=== PATIENT | female | born 1930 | race Hispanic/Latino ===

== ENCOUNTER 2019-05-26 18:21 | Inpatient (IN) | payer MEDICARE ==
--- NOTE | 2019-05-26 18:29 | Emergency Department Report ---
Blank Doc - Documentation Documentation: 89-year-old female that presents with SOB and bilateral leg swellings. This initial assessment/diagnostic orders/clinical plan/treatment(s) is/are subject to change based on patient's health status, clinical progression and re- assessment by fellow clinical providers in the ED. Further treatment and workup at subsequent clinical providers discretion. Patient/guardians urged not to elope from the ED as their condition may be serious if not clinically assessed and managed. Initial orders include: 1- Patient sent to MAIN for further evaluation and treatment 2- labs 3- EKG 4- CXR
[2019-05-26 19:28] LABS: Hematocrit 41.6 % (30.3-42.9); Hemoglobin 13.5 gm/dl (10.1-14.3); Mean Corpuscular HGB Conc 33 % (30-34); Mean Corpuscular Volume 98 fl (79-97); Mean Platelet Volume 7.7 fl (6-12); Platelet Count 314 K/mm3 (140-440); Red Blood Count 4.23 M/mm3 (3.65-5.03); Red Cell Distribution Width 15.9 % (13.2-15.2)
[2019-05-26 19:29] LABS: Basophils # (Auto) 0.1 K/mm3 (0.0-0.1); Basophils % (Auto) 0.7 % (0.0-1.8); Eosinophils # (Auto) 0.1 K/mm3 (0.0-0.4); Eosinophils % (Auto) 0.5 % (0.0-4.3); Lymphocytes % (Auto) 7.3 % (13.4-35.0); Monocytes # (Auto) 1.3 K/mm3 (0.0-0.8)
--- NOTE | 2019-05-26 19:33 | XRay Report ---
CHEST PA AND LATERAL VIEWS INDICATION: Chest Pain. COMPARISON: None FINDINGS: Support devices: None Heart: Upper limits of normal Lungs/Pleura: Diffuse interstitial lung disease with no significant pleural fluid. IMPRESSION: 1. Interstitial lung disease. At least some is thought to be chronic. Suggest follow-up to assess int erstitial edema versus chronic fibrosis. Signer Name: Cain Valentin MD Signed: 05/26/2019 7:29 PM Workstation Name: [id number]
[2019-05-26 19:45] LABS: INR 0.98 (0.87-1.13); Partial Thromboplastin Time 41.1 Sec. (24.2-36.6)
[2019-05-26 20:48] LABS: Alanine Aminotransferase 16 units/L (7-56); Albumin 3.9 g/dL (3.9-5); BUN/Creatinine Ratio 41; Blood Urea Nitrogen 29 mg/dL (7-17); Calcium 9.5 mg/dL (8.4-10.2); Hemolysis Index 23
--- NOTE | 2019-05-27 02:00 | Cat Scan Report ---
CTA CHEST WITH IV CONTRAST INDICATION: sob and hypoxemia CONTRAST: 100 cc Omnipaque 350 IV COMPARISON: Chest x-ray tonight Three-plane MIP reconstructions were produced. All CT scans at this location are performed using CT d ose reduction for ALARA by means of automated exposure control. NOTE: Resolution is decreased and artifact is introduced by the patient's size. FINDINGS: No significant axillary or chest wall lesions are seen. Visualized portions of the upper ab domen show small probable renal cysts. Nodularity is seen in both adrenal glands. Largest nodule is i n the right adrenal gland measuring 2 cm with internal density of 10 Hounsfield units. Smaller probab le nodules are seen in the left adrenal gland. Gallstones are seen without gallbladder wall thickenin g. Moderate adenopathy is seen in the mediastinum. A right paratracheal node has a short axis diamete r of 2.3 cm. There may be mild right hilar adenopathy. Small pericardial effusion is seen. Coronary a rtery calcifications are noted. Heart appears mildly enlarged. The isthmus of the thyroid shows a nod ule measuring 13 mm. Small right and minimal left pleural effusions are seen. Diffuse increased inter stitial markings are seen in the lung emerson which could be chronic but I suspect at least part of th is finding represents pulmonary edema. Mild atelectatic changes are seen in the lower lobes. I cannot exclude pneumonitis, particularly in the right lower lobe. No discrete nodules or masses are identif ied. No pneumothorax or pneumomediastinum are seen. Aorta shows moderate atherosclerotic changes in the thorax I do not see true aneurysmal dilatation th ough the descending thoracic aorta is ectatic and is lower most portion particularly where this measu res 3.3 cm in diameter. No evidence of dissection is seen. 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 Atherosclerotic changes are prominent in the abdominal aorta. Major branches show atheros clerotic changes at their origins of the celiac axis and superior mesenteric artery are not clearly s ignificantly narrowed. However, both renal arteries show atherosclerotic changes at their origins and appear to show significant stenosis with up to 75% on the right and at least 60% on the left. Flow i s seen distally. Good opacification of the pulmonary arterial system was achieved. I do not see evidence of pulmonary thromboembolism. IMPRESSION: 1. No evidence of pulmonary thromboembolism 2. Probable diffuse interstitial pulmonary edema 3. Bibasilar atelectatic changes with possibility of pneumonitis in the right lower lobe. Small right and minimal left pleural effusions are seen. 4. Small lesion in the isthmus of the thyroid. See below. 5. 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 No acute changes are seen however. Bilateral probably significant renal artery proximal steno sis is noted. 6. Cholelithiasis without acute change seen 7. Bilateral adrenal nodularity. Recommend follow-up. Signer Name: Bill Mercer MD Signed: 05/27/2019 1:56 AM Workstation Name: [id number]
--- NOTE | 2019-05-27 02:05 | Emergency Department Report ---
ED Shortness of Breath HPI - General Chief Complaint: Dyspnea/Respdistress Stated Complaint: SOB Time Seen by Provider: 05/26/19 18:28 Source: patient Mode of arrival: Wheelchair Limitations: No Limitations - History of Present Illness Initial Comments: 89-year-old female past medical history of hypertension and tobacco abuse for the last 50 years but one pack per day presents emergency Department with her daughter reports having some greenish the worsening shortness of breath over the last 1 week and extremely more noticeable today while at the pain clinic for routine evaluation. She reports some swelling to her lower extremity as well denies any fever, chills, sweats, hemoptysis, hematemesis, hematochezia, foreign travel. Reports no nausea or vomiting. MD Complaint: shortness of breath Severity: mild Quality: dull Consistency: constant Improves With: nothing Worsens With: nothing Associated Symptoms: denies other symptoms Treatments Prior to Arrival: none - Related Data Home Oxygen Therapy: No Allergies Allergy/AdvReac Type Severity Reaction Status Date / Time No Known Allergies Allergy Verified 05/27/19 02:35 ED Review of Systems ROS: Stated complaint: SOB Other details as noted in HPI ED Past Medical Hx - Past Medical History Hx Hypertension: Yes Hx Arthritis: Yes Additional medical history: high cholesterol - Surgical History Past Surgical History?: Yes Additional Surgical History: rt elbow surgery - Social History Smoking Status: Current Every Day Smoker Substance Use Type: None ED Physical Exam - General Limitations: No Limitations ED Course Vital Signs 05/26/19 05/26/19 05/26/19 19:04 21:54 22:22 Temperature 97.8 F Pulse Rate 92 H 95 H Respiratory 20 20 Rate Blood Pressure 132/58 Blood Pressure 124/60 [Left] O2 Sat by Pulse 92 90 94 Oximetry ED Medical Decision Making - Lab Data Result diagrams: 05/26/19 18:54 05/26/19 18:54 - EKG Data EKG shows normal: sinus rhythm Rate: normal - EKG Data Interpretation: other (low-voltage EKG no ST segment changes or J-point elevation) - Radiology Data Radiology results: report reviewed [facility] [address] [place] [address] Cat Scan Report Signed Patient: IVETTE LAI MR#: [id number] 1 : 1930 Acct:[id number] Age/Sex: 89 / F ADM Date: 05/26/19 Loc: ED Attending Dr: Ordering Physician: GUY BREWER Date of Service: 05/26/19 Procedure(s): CT angio chest Accession Number(s): [id number] cc: GUY BREWER CTA CHEST WITH IV CONTRAST INDICATION: sob and hypoxemia CONTRAST: 100 cc Omnipaque 350 IV COMPARISON: Chest x-ray tonight Three-plane MIP reconstructions were produced. All CT scans at this location are performed using CT dose reduction for ALARA by means of automated exposure control. NOTE: Resolution is decreased and artifact is introduced by the patient's size. FINDINGS: No significant axillary or chest wall lesions are seen. Visualized portions of the upper abdomen show small probable renal cysts. Nodularity is seen in both adrenal glands. Largest nodule is in the right adrenal gland measuring 2 cm with internal density of 10 Hounsfield units. Smaller probable nodules are seen in the left adrenal gland. Gallstones are seen without gallbladder wall thickening. Moderate adenopathy is seen in the mediastinum. A right paratracheal node has a short axis diameter of 2.3 cm. There may be mild right hilar adenopathy. Small pericardial effusion is seen. Coronary artery calcifications are noted. Heart appears mildly enlarged. The isthmus of the thyroid shows a nodule measuring 13 mm. Small right and minimal left pleural effusions are seen. Diffuse increased interstitial markings are seen in the lung emerson which could be chronic but I suspect at least part of this finding represents pulmonary edema. Mild atelectatic changes are seen in the lower lobes. I cannot exclude pneumonitis, particularly in the right lower lobe. No discrete nodules or masses are identified. No pneumothorax or pneumomediastinum are seen. Aorta shows moderate atherosclerotic changes in the thorax I do not see true aneurysmal dilatation though the descending thoracic aorta is ectatic and is lower most portion particularly where this measures 3.3 cm in diameter. No evidence of dissection is seen. 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 Atherosclerotic changes are prominent in the abdominal aorta. Major branches show atherosclerotic changes at their origins of the celiac axis and superior mesenteric artery are not clearly significantly narrowed. However, both renal arteries show atherosclerotic changes at their origins and appear to show significant stenosis with up to 75% on the right and at least 60% on the left. Flow is seen distally. Good opacification of the pulmonary arterial system was achieved. I do not see evidence of pulmonary thromboembolism. IMPRESSION: 1. No evidence of pulmonary thromboembolism 2. Probable diffuse interstitial pulmonary edema 3. Bibasilar atelectatic changes with possibility of pneumonitis in the right lower lobe. Small right and minimal left pleural effusions are seen. 4. Small lesion in the isthmus of the thyroid. See below. 5. 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 No acute changes are seen however. 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 6. Cholelithiasis without acute change seen 7. Bilateral adrenal nodularity. Recommend follow-up. Signer Name: Bill Mercer MD Signed: 05/27/2019 1:56 AM Workstation Name: [id number] Transcribed By: ASHLEY Dictated By: Bill Mercer MD Electronically Authenticated By: Bill Mercer MD Signed Date/Time: 05/27/19 0156 DD/ 0144 TD/TT: - Medical Decision Making 89-year-old female presents emergency department for progressively worsening dyspnea and chest pain with history of severe to tobacco abuse. Episode at shows a white count CT scan shows a small right lower lobe pneumonia. She is satting and on room air and with the utilization of oxygen at 4 L nasal cannula since saturations up to 94%. Plan is to admit her for further evaluation and treatment Critical care attestation.: If time is entered above; I have spent that time in minutes in the direct care of this critically ill patient, excluding procedure time. ED Disposition Clinical Impression: Hypoxemia, SOB (shortness of breath), Right lower lobe pneumonia Disposition: OP ADMIT IP TO THIS HOSP Is pt being admited?: No Does the pt Need Aspirin: No Condition: Stable Instructions: Bacterial Pneumonia (ED) Referrals: PRIMARY CARE, [Primary Care Provider] - 3-5 Days
[2019-05-27] MEDS ORDERED: AZITHROMYCIN 500 MG in SODIUM CHLORIDE 0.9% 250ML 250 ML IV ONE (02:30)
[2019-05-27] MEDS ORDERED: predniSONE 50 MG TAB PO STA (02:59)
[2019-05-27] MEDS ORDERED: ALBUTEROL 2.5 MG/3 ML NEBU IH STA (02:59)
[2019-05-27] MEDS ORDERED: ACETAMINOPHEN 325 MG TAB PO PRN (03:17)
[2019-05-27] MEDS ORDERED: FUROSEMIDE 40 MG/4 ML INJ IV ONE (03:17)
[2019-05-27] MEDS ORDERED: ONDANSETRON 4 MG/2 ML INJ IV PRN (03:18)
[2019-05-27] MEDS ORDERED: MORPHINE 2 MG/1 ML INJ IV ONE (04:06)
[2019-05-27] MEDS: HEPARIN 5,000 UNIT/1 ML VIAL SUB-Q SCH ×3 (04:13→21:53)
[2019-05-27] MEDS: methylPREDNISolone Sod Succinate 125 MG/2 ML INJ IV SCH ×3 (05:48→21:53)
[2019-05-27 06:24] LABS: Creatine Kinase MB 3.4 ng/mL (0.0-4.0)
[2019-05-27] MEDS ORDERED: IPRATROPIUM/ALBUTEROL SULFATE 3 ML AMPUL.NEB IH SCH (08:00)
--- NOTE | 2019-05-27 08:06 | History and Physical Report ---
CHIEF COMPLAINT: Shortness of breath. HISTORY OF PRESENT ILLNESS: The patient is an 89-year-old female who has been having difficulty in breathing, going on for about 1 week and the symptoms became noticeably worse within the last 24 hours. There was no history of chest pain, no history of fever or chills; however, the patient has history of cough productive of green sputum. The patient denied history of nausea and vomiting and was evaluated in the Emergency Room and noted to be hypoxic. PAST MEDICAL HISTORY: Pertinent for hypertension, arthritis, hypercholesterolemia. PAST SURGICAL HISTORY: Pertinent for right elbow surgery. FAMILY HISTORY: Noncontributory. SOCIAL HISTORY: The patient is every day smoker. Does not drink alcohol and does not use illicit drugs. MEDICATIONS: The patient's home medications are not known at this time. ALLERGIES: There are no known drug allergies. REVIEW OF SYSTEMS: CONSTITUTIONAL: There is no fever, no chills, no diaphoresis. HEENT: There is no headache or sore throat. CARDIOVASCULAR SYSTEM: There is no chest pain or orthopnea. RESPIRATORY SYSTEM: Shortness of breath is present. Cough is present. GASTROINTESTINAL SYSTEM: There is no nausea, no vomiting, no abdominal pain, diarrhea or constipation. NEUROLOGICAL SYSTEM: There is no numbness, no dizziness, no altered mental status. MUSCULOSKELETAL SYSTEM: Chronic back pain noted. No joint swelling. DERMATOLOGICAL SYSTEM: There is no skin rash or itching. GENITOURINARY SYSTEM: There is no dysuria, hematuria, or flank pain. Rest of system review is normal. PHYSICAL EXAMINATION: GENERAL: At the time of exam, the patient was found to be alert, oriented x 3 and in mild distress due to shortness of breath. VITAL SIGNS: At the initial time of presentation showed temperature of 97.8 degrees Fahrenheit, pulse of 92, respirations 20, blood pressure 124/60, O2 sat of 92% on room air. HEENT: Showed pupils to be equal, round, reactive to light and accommodating. Extraocular muscles are intact. NECK: Supple with no JVD or carotid bruit. CARDIOVASCULAR SYSTEM: Showed normal first and second heart sounds with no gallops or murmurs. RESPIRATORY SYSTEM: Showed reduced air entry on both sides of the lungs with respiratory wheezing. GASTROINTESTINAL SYSTEM: Show abdomen to be full, soft, nontender with no organomegaly or rigidity. NEUROLOGIC: Shows no focal deficit. MUSCULOSKELETAL SYSTEM: Show no joint swelling or tenderness. DERMATOLOGICAL SKIN: Showed no skin rash. GENITOURINARY SYSTEM: Showing no costovertebral angle tenderness. PERTINENT LABORATORY AND IMAGING STUDIES: 1. The patient had CT angiogram of the chest done that shows no evidence of pulmonary embolism and the radiologist said there is probably diffuse interstitial pulmonary edema as well as bibasilar atelectatic changes with possibility of pneumonitis in the right lower lobe. There is finding of small right and minimal left pleural effusion and small lesion in the isthmus of the thyroid was seen. Also, the radiologist reported prominent atherosclerotic changes in the abdominal aorta with aneurysmal dilatation of the lower portion. 2. The CT angiogram of the chest also shows cholelithiasis without any acute change and there is finding of bilateral adrenal nodularity. The patient also had chest x-ray done and chest x-ray was read as showing interstitial lung disease, thought to be chronic and the radiologist said to do a followup x-ray to assess interstitial edema versus chronic fibrosis. LAB RESULTS: The patient has CBC done with elevated white count of 14,000, normal hemoglobin and normal hematocrit with CBC differential showing high monocyte count of 9% and high segmented neutrophil count of 82.5%. The patient coagulation studies show slightly elevated PTT of 41.1 with normal INR and normal PT. The patient's arterial blood gas shows a high pH of 7.45 with normal pCO2 and low O2 sat of 85% on room air. The patient's chemistry was unremarkable. Cardiac enzymes came back normal. Brain natriuretic peptide level was normal and rest of the patient's chemistry came back normal. DIAGNOSES: 1. Dyspnea. 2. Hypoxia. 3. Pneumonitis. PLAN OF CARE: 1. The patient will be placed on observation in the medical surgical [facility] on remote telemetry. 2. The patient will have 2D echo done this morning to evaluate the left ventricular function. 3. The patient will have serial cardiac enzymes involving troponin, total CK, and CK-MB checked every 6 hours x 2 more levels. 4. The patient will be on IV ceftriaxone 2 g daily and IV Zithromax 500 mg daily. 5. The patient will be on p.r.n. medications like Tylenol 650 mg by mouth every 4 hours for fever and headache and IV Zofran 4 mg every 8 hours for nausea and vomiting. 6. The patient will be on Duo nebulizer q.i.d. 7. The patient will be on IV Solu-Medrol 60 mg every 8 hours. 8. The patient will be on oxygen by nasal cannula, which will be titrated to keep O2 sat above 94%. 9. The patient's diet will be low sodium diet. 10. The patient's home medications will be started as shown in the medication reconciliation section. JOB# [id number] OCN/NTS
[2019-05-27] MEDS ORDERED: cefTRIAXone/NS 2 GM/100 ML 2 GM/100 ML BAG IV SCH (10:00)
[2019-05-27 13:49] LABS: Creatine Kinase MB 3.9 ng/mL (0.0-4.0)
[2019-05-27] MEDS: IPRATROPIUM/ALBUTEROL SULFATE 3 ML AMPUL.NEB IH SCH ×2 (14:22→21:40)
--- NOTE | 2019-05-27 15:03 | Event Note ---
Date: 05/27/19 Patient seen and examined admitted with acute hypoxic respiration failure, SIRS with possible CAP, b/l pulmonary edema and possible CHF pending Cx, pending echo cont current mx as dictated in the H and P
[2019-05-27] MEDS: FUROSEMIDE 40 MG/4 ML INJ IV SCH (18:13)
[2019-05-27] MEDS: oxyCODONE /ACETAMINOPHEN 5-325MG TAB PO PRN (18:17)
[2019-05-28] MEDS: AZITHROMYCIN 500 MG in SODIUM CHLORIDE 0.9% 250ML 250 ML IV SCH (02:26)
[2019-05-28] MEDS: cefTRIAXone/NS 2 GM/100 ML 2 GM/100 ML BAG IV SCH (02:27)
[2019-05-28] MEDS: oxyCODONE /ACETAMINOPHEN 5-325MG TAB PO PRN ×3 (02:44→20:00)
[2019-05-28 05:02] LABS: Hemoglobin 11.2 gm/dl (10.1-14.3); Mean Corpuscular HGB Conc 33 % (30-34); Mean Corpuscular Volume 97 fl (79-97); Platelet Count 277 K/mm3 (140-440); Red Cell Distribution Width 15.3 % (13.2-15.2)
[2019-05-28 05:21] LABS: BUN/Creatinine Ratio 57; Blood Urea Nitrogen 34 mg/dL (7-17); Calcium 8.4 mg/dL (8.4-10.2); Hemolysis Index 4
[2019-05-28] MEDS: FUROSEMIDE 40 MG/4 ML INJ IV SCH (06:31)
[2019-05-28 06:40] LABS: Eosinophils % (Manual) 0 % (0.0-4.3); Macrocytosis Few; Total Cells Counted 100
[2019-05-28 06:41] LABS: Ovalocytes Few; Platelet Estimate Consistent w Auto
[2019-05-28] MEDS: IPRATROPIUM/ALBUTEROL SULFATE 3 ML AMPUL.NEB IH SCH ×3 (09:31→19:32)
[2019-05-28] MEDS ORDERED: BENAZEPRIL 20 MG PO SCH (10:00)
[2019-05-28] MEDS ORDERED: NON-FORMULARY EACH (Amlodipine 10 MG) PO SCH (10:00)
[2019-05-28] MEDS ORDERED: NON-FORMULARY EACH (Atorvastatin 20 MG) PO SCH (10:00)
[2019-05-28] MEDS: amLODIPine 10 MG TAB PO SCH (10:17)
[2019-05-28] MEDS: LISINOPRIL 20 MG TAB PO SCH (10:25)
[2019-05-28] MEDS: methylPREDNISolone Sod Succinate 125 MG/2 ML INJ IV SCH ×2 (10:42→22:25)
[2019-05-28] MEDS: HEPARIN 5,000 UNIT/1 ML VIAL SUB-Q SCH ×2 (10:44→22:26)
--- NOTE | 2019-05-28 12:13 | Consultation ---
History of Present Illness Consult date: 05/28/19 Requesting physician: DARREN RENAE Reason for consult: other (Respiratory distress, AE-COPD) History of present illness: 89-year-old female past medical history of hypertension and tobacco abuse for the last 50 years but one pack per day presents emergency Department with her daughter reports having some greenish the worsening shortness of breath over the last 1 week and extremely more noticeable today while at the pain clinic for routine evaluation. She reports some swelling to her lower extremity as well denies any fever, chills, sweats, hemoptysis, hematemesis, hematochezia, foreign travel. Reports no nausea or vomiting. She is a current every day 1PPD smoker, and has been smoking for over 50 years. Patient was seen and examined. Vitals, labs, medications, chart and imaging reviewed. She is sitting up in bed, on supplemental oxygen at 3L/min. Medications and Allergies Allergies Allergy/AdvReac Type Severity Reaction Status Date / Time No Known Allergies Allergy Verified 05/27/19 02:35 Home Medications Medication Instructions Recorded Confirmed Last Taken Type Atorvastatin 20 mg PO DAILY 05/27/19 05/27/19 Unknown History Benazepril (Nf) 20 mg PO DAILY 05/27/19 05/27/19 Unknown History HYDROcodone/APAP 10-325 10 - 325 mg PO TID PRN 05/27/19 05/27/19 Unknown History amLODIPine 10 mg PO DAILY 05/27/19 05/27/19 Unknown History Active Meds: Active Medications Acetaminophen (Tylenol) 650 mg PO Q4H PRN PRN Reason: Fever >101 Albuterol/Ipratropium (Duoneb *Not For Prn Use*) 1 ampul IH TIDRT [facility] Last Admin: 05/28/19 09:31 Dose: 1 ampul Documented by: Amlodipine Besylate (Amlodipine) 10 mg PO DAILY [facility] Last Admin: 05/28/19 10:17 Dose: 10 mg Documented by: Atorvastatin Calcium (Lipitor) 20 mg PO QHS [facility] Last Admin: 05/27/19 21:53 Dose: 20 mg Documented by: Furosemide (Lasix) 40 mg IV 0600,1800 [facility] Last Admin: 05/28/19 06:31 Dose: 40 mg Documented by: Heparin Sodium (Porcine) (Heparin) 5,000 unit SUB-Q Q12HR [facility] Last Admin: 05/28/19 10:44 Dose: 5,000 unit Documented by: Azithromycin 500 mg/ Sodium (Chloride) 250 mls @ 250 mls/hr IV 0200 [facility]; Protocol Last Admin: 05/28/19 02:26 Dose: 250 mls/hr Documented by: Ceftriaxone Sodium (Rocephin/Ns 2 Gm/100 Ml) 2 gm in 100 mls @ 200 mls/hr IV Q24H [facility]; Protocol Last Admin: 05/28/19 02:27 Dose: 200 mls/hr Documented by: Lisinopril (Zestril) 20 mg PO QDAY [facility] Last Admin: 05/28/19 10:25 Dose: 20 mg Documented by: Methylprednisolone Sodium Succinate (Solu-Medrol) 40 mg IV Q12HR [facility] Last Admin: 05/28/19 10:42 Dose: 40 mg Documented by: Ondansetron HCl (Zofran) 4 mg IV Q8H PRN PRN Reason: Nausea And Vomiting Oxycodone/Acetaminophen (Percocet 5/325) 1 tab PO Q6H PRN PRN Reason: Pain, Moderate (4-6) Last Admin: 05/28/19 10:23 Dose: 1 tab Documented by: Review of Systems Constitutional: no weight loss, no weight gain, no fever, no chills, no sweats Cardiovascular: no chest pain, no orthopnea, no palpitations, no rapid/irregular heart beat, no edema, no syncope Respiratory: cough, shortness of breath, dyspnea on exertion, no hemoptysis, no wheezing, no pleurisy, no pain on inspiration Gastrointestinal: no abdominal pain, no nausea, no vomiting, no diarrhea, no constipation, no hematemesis, no coffee ground emesis Musculoskeletal: other (chronic back pain), no neck stiffness, no neck pain, no shooting arm pain, no arm numbness/tingling Neurological: no transient paralysis, no paralysis, no seizures, no syncope, no tremors, no ataxia Psychiatric: no anxiety, no memory loss, no insomnia, no suicidal ideation, no disorientation, no hallucinations Hematologic/Lymphatic: no easy bruising, no easy bleeding Allergic/Immunologic: no urticaria, no allergic rhinitis, no wheezing, no persistent infections Physical Examination Vital signs: Vital Signs Pulse Resp BP Pulse Ox 92 H 20 124/60 92 05/26/19 19:04 05/26/19 19:04 05/26/19 19:04 05/26/19 19:04 Reviewed. GENERAL: Elderly obese white female lying on bed appeared to be in mild respir atory Khyphotic HEENT: Normocephalic. Atraumatic. No conjunctival congestion or icterus. Patient has moist mucous membranes. NECK: Supple. Trachea midline. CHEST/LUNGS: Positive breath sounds auscultated bilaterally, Poor AE, long expiratory phase HEART/CARDIOVASCULAR: Regular in rate and rhythm. S1 and S2 positive. ABDOMEN: Abdomen is soft, nontender. Patient has normal bowel sounds. SKIN: There is no rash. Warm and dry. NEURO: No focal motor deficit. Follows command. MUSCULOSKELETAL: No joint effusion or tenderness. EXTRIMITY: No edema, no cyanosis or clubbing. PSYCH: Cooperative. Results - Laboratory Findings CBC and BMP: 05/28/19 04:14 05/28/19 04:14 ABG POC ABG pH 7.456 (7.35-7.45) H 05/26/19 22:26 POC ABG pCO2 39.5 (35-45) 05/26/19 22:26 POC ABG HCO3 27.8 (22-26 mml/L) 05/26/19 22:26 POC ABG Total CO2 29 (23-27mmol/L) 05/26/19 22:26 POC ABG O2 Sat 85 05/26/19 22:26 PT/INR, D-dimer PT 12.9 Sec. (12.2-14.9) 05/26/19 18:54 INR 0.98 (0.87-1.13) 05/26/19 18:54 Abnormal lab findings: Abnormal Labs 05/26/19 05/26/19 05/26/19 18:54 18:54 18:54 WBC 14.0 H RBC MCV 98 H RDW 15.9 H Lymph % (Auto) 7.3 L [place] % (Auto) 9.0 H Lymph # 1.0 L [place] # 1.3 H Seg Neutrophils % 82.5 H Seg Neuts % (Manual) Lymphocytes % (Manual) Seg Neutrophils # 11.5 H Seg Neutrophils # Man Lymphocytes # (Manual) APTT 41.1 H POC ABG pH BUN 29 H Creatinine Glucose 115 H CK-MB (CK-2) Rel Index 05/26/19 05/27/19 05/28/19 22:26 05:48 04:14 WBC 11.7 H RBC 3.50 L MCV RDW 15.3 H Lymph % (Auto) [place] % (Auto) Lymph # [place] # Seg Neutrophils % Seg Neuts % (Manual) 93.0 H Lymphocytes % (Manual) 5.0 L Seg Neutrophils # Seg Neutrophils # Man 10.9 H Lymphocytes # (Manual) 0.6 L APTT POC ABG pH 7.456 H BUN Creatinine Glucose CK-MB (CK-2) Rel Index 5.2 H 05/28/19 04:14 WBC RBC MCV RDW Lymph % (Auto) [place] % (Auto) Lymph # [place] # Seg Neutrophils % Seg Neuts % (Manual) Lymphocytes % (Manual) Seg Neutrophils # Seg Neutrophils # Man Lymphocytes # (Manual) APTT POC ABG pH BUN 34 H Creatinine 0.6 L Glucose 124 H CK-MB (CK-2) Rel Index - Diagnostic Findings Chest x-ray: image reviewed Additional studies: CXR: 1. Interstitial lung disease. At least some is thought to be chronic. Suggest follow-up to assess interstitial edema versus chronic fibrosis. CT chest: 1. No evidence of pulmonary thromboembolism 2. Probable diffuse interstitial pulmonary edema 3. Bibasilar atelectatic changes with possibility of pneumonitis in the right lower lobe. Small right and minimal left pleural effusions are seen. 4. Small lesion in the isthmus of the thyroid. See below. 5. 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 No acute changes are seen however. 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 6. Cholelithiasis without acute change seen 7. Bilateral adrenal nodularity. Recommend follow-up. Assessment and Plan Acute hypoxemic respiratory failure RLL- CAP vs atelectasis Tobacco use disorder Chronic pain on narcotics Diastolic dysfunction HFpEF Bilateral adrenal nodularity on CT. - Continue supplemental O2 to keep O2 sats>90% -IV antibiotics, IV tapering steroid -Gentle diuresis while monitoring renal function, electrolyte profile and hemodynamics -Home O2 assessment on discharge -Treat with antibiotics for a total of 5 days -Bronchodilators - Patient has long history of tobacco smoking, she is also morbidly obese - cannot rule out underlying obstructive sleep apnea - Need to follow up with the pulmonary outpatient for PFT -VTE prophylaxis -Poor appetite- supplements -VTE prophylaxis -Life style modifications -Analgesia, bowel regimen -Smoking cessation counselling fro >7 minutes at the bedside. -Chronic home medications -Follow up CT scan as outpatient to evaluate the adrenal nodularity and lung findings -Thyroid nodule work up per primary service. -Blood pressure optimization -Chronic home medications -Stress ulcer prophylaxis- patient is on high dose steroids Thank you . Will follow. Discussed with primary attending, RN and the patient. Please do not hesitate to call with questions or concerns.
--- NOTE | 2019-05-28 14:38 | Progress Note ---
Assessment and Plan Acute respiratory failure - Likely due to acute diastolic heart failure, commonly acquired pneumonia and possible underlying COPD - Continue supplemental O2, IV antibiotics, IV tapering steroid - Also given a couple doses of IV Lasix- will follow response -2-D echo showed preserved EF with possible diastolic dysfunction - Pulmonary following, requested for home O2 assessment CAP, b/l - Continue IV antibiotics - We will treat for total of 5 days Possible underlying COPD with acute exertion - Patient has long history of tobacco smoking, she is also morbidly obese - cannot rule out underlying obstructive sleep apnea - Continue nebulizer breathing treatment, tapering IV steroids and IV antibiotics - Need to follow up with the pulmonary outpatient for PFT - Assessed for home O2 requirement on discharge Acute diastolic heart failure - Status post IV Lasix, will change to by mouth today - Continue supportive care, supplemental oxygen Osteoarthritis, supportive care, continue home meds Morbid obesity, dietary regimen for weight reduction as appropriate Thyroid nodule, order TSH and T4, thyroid ultrasound Tobacco abuse, counseled for cessation DVT prophylaxis, Lovenox Brief History: 89-year-old female past medical history of hypertension and tobacco abuse for the last 50 years but one pack per day presents emergency Department with her daughter reports having some greenish the worsening shortness of breath over the last 1 week Radiological data: CXR: 1. Interstitial lung disease. At least some is thought to be chronic. Suggest follow-up to assess interstitial edema versus chronic fibrosis. CT chest: 1. No evidence of pulmonary thromboembolism 2. Probable diffuse interstitial pulmonary edema 3. Bibasilar atelectatic changes with possibility of pneumonitis in the right lower lobe. Small right and minimal left pleural effusions are seen. 4. Small lesion in the isthmus of the thyroid. See below. 5. 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 No acute changes are seen however. 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 6. Cholelithiasis without acute change seen 7. Bilateral adrenal nodularity. Recommend follow-up. Hospitalist Physical exam: GENERAL: Elderly obese white female lying on bed appeared to be in no discomfort. HEENT: Normocephalic. Atraumatic. No conjunctival congestion or icterus. Patient has moist mucous membranes. NECK: Supple. Trachea midline. CHEST/LUNGS: Positive breath sounds auscultated bilaterally, breathing nonlabored. No wheezes crackles or rhonchi. HEART/CARDIOVASCULAR: Regular in rate and rhythm. S1 and S2 positive. ABDOMEN: Abdomen is soft, nontender. Patient has normal bowel sounds. SKIN: There is no rash. Warm and dry. NEURO: No focal motor deficit. Follows command. MUSCULOSKELETAL: No joint effusion or tenderness. EXTRIMITY: No edema, no cyanosis or clubbing. PSYCH: Cooperative. Subjective Date of service: 05/28/19 Interval history: Patient seen and examined. Medical records and medication list reviewed. No acute event overnight noted by the RN. Patient denies any chest pain but continued to complaints of difficulty breathing on exertion. Patient is tolerating diet. Discussed plan of care at bedside with patient and her daughter. Objective - Constitutional Vitals: Vital Signs - 12hr 05/28/19 05/28/19 05/28/19 02:44 05:46 10:17 Temperature 97.7 F Pulse Rate 103 H 98 H Respiratory 16 22 Rate Blood Pressure 116/55 124/57 O2 Sat by Pulse 94 Oximetry 05/28/19 05/28/19 10:23 10:25 Temperature Pulse Rate 98 H Respiratory 18 Rate Blood Pressure 124/57 O2 Sat by Pulse Oximetry - Labs CBC & Chem 7: 05/28/19 04:14 05/28/19 04:14 Labs: Abnormal lab results 05/28/19 05/28/19 Range/Units 04:14 04:14 WBC 11.7 H (4.5-11.0) K/mm3 RBC 3.50 L (3.65-5.03) M/mm3 RDW 15.3 H (13.2-15.2) % Seg Neuts % (Manual) 93.0 H (40.0-70.0) % Lymphocytes % (Manual) 5.0 L (13.4-35.0) % Seg Neutrophils # Man 10.9 H (1.8-7.7) K/mm3 Lymphocytes # (Manual) 0.6 L (1.2-5.4) K/mm3 BUN 34 H (7-17) mg/dL Creatinine 0.6 L (0.7-1.2) mg/dL Glucose 124 H (65-100) mg/dL
[2019-05-28] MEDS: POLYETHYLENE GLYCOL 3350 17 GM POWDER PO SCH (16:48)
[2019-05-28] MEDS: DOCUSATE SODIUM 100 MG CAP PO SCH ×2 (16:48→22:26)
[2019-05-29] MEDS: cefTRIAXone/NS 2 GM/100 ML 2 GM/100 ML BAG IV SCH (01:59)
[2019-05-29] MEDS: AZITHROMYCIN 500 MG in SODIUM CHLORIDE 0.9% 250ML 250 ML IV SCH (02:28)
[2019-05-29] MEDS: IPRATROPIUM/ALBUTEROL SULFATE 3 ML AMPUL.NEB IH SCH ×3 (08:14→20:40)
[2019-05-29] MEDS ORDERED: FUROSEMIDE 40 MG TAB PO SCH (10:00)
[2019-05-29] MEDS: oxyCODONE /ACETAMINOPHEN 5-325MG TAB PO PRN ×2 (10:42→21:36)
[2019-05-29] MEDS: amLODIPine 10 MG TAB PO SCH (10:43)
[2019-05-29] MEDS: methylPREDNISolone Sod Succinate 125 MG/2 ML INJ IV SCH ×2 (10:43→21:32)
[2019-05-29] MEDS: FUROSEMIDE 40 MG TAB PO SCH (10:44)
[2019-05-29] MEDS: LISINOPRIL 20 MG TAB PO SCH (10:44)
[2019-05-29] MEDS: DOCUSATE SODIUM 100 MG CAP PO SCH ×2 (10:47→21:33)
[2019-05-29] MEDS: POLYETHYLENE GLYCOL 3350 17 GM POWDER PO SCH (10:47)
[2019-05-29] MEDS: HEPARIN 5,000 UNIT/1 ML VIAL SUB-Q SCH ×2 (10:48→21:33)
--- NOTE | 2019-05-29 12:04 | Progress Note ---
Assessment and Plan Acute respiratory failure - Likely due to acute diastolic heart failure, commonly acquired pneumonia and possible underlying COPD - Continue supplemental O2, IV antibiotics, IV tapering steroid - Also given a couple doses of IV Lasix- will follow response -2-D echo showed preserved EF with possible diastolic dysfunction - Pulmonary following, requested for home O2 assessment CAP, b/l - Continue IV antibiotics - We will treat for total of 5 days Possible underlying COPD with acute exertion - Patient has long history of tobacco smoking, she is also morbidly obese - cannot rule out underlying obstructive sleep apnea - Continue nebulizer breathing treatment, tapering IV steroids and IV antibiotics - Need to follow up with the pulmonary outpatient for PFT - Assessed for home O2 requirement on discharge Acute diastolic heart failure - Status post IV Lasix, will change to by mouth today - Continue supportive care, supplemental oxygen Osteoarthritis, supportive care, continue home meds Morbid obesity, dietary regimen for weight reduction as appropriate Thyroid nodule, order TSH and T4, thyroid ultrasound Tobacco abuse, counseled for cessation DVT prophylaxis, Lovenox Subjective Date of service: 05/29/19 Principal diagnosis: acute respiratory failure, CHF exacerbation and COPD exacerbation Interval history: 89-year-old female past medical history of hypertension and tobacco abuse for the last 50 years but one pack per day presents emergency Department with her daughter reports having some greenish the worsening shortness of breath over the last 1 week . Symptomatically better Objective - Constitutional Vitals: Vital Signs - 12hr 05/29/19 05/29/19 05/29/19 01:13 EST 06:57 08:15 Temperature 98.9 F 98.0 F Pulse Rate 103 H 91 H Pulse Rate [ 98 H Bilateral Throughout] Respiratory 18 16 Rate Respiratory 20 Rate [Bilateral Throughout] Blood Pressure 106/43 120/55 O2 Sat by Pulse 95 92 95 Oximetry 05/29/19 05/29/19 10:43 10:44 Temperature Pulse Rate 100 H 100 H Pulse Rate [ Bilateral Throughout] Respiratory Rate Respiratory Rate [Bilateral Throughout] Blood Pressure 132/100 132/62 O2 Sat by Pulse Oximetry General appearance: Present: mild distress, well-nourished - EENT Eyes: PERRL, EOM intact ENT: hearing intact, clear oral mucosa Ears: bilateral: normal - Neck Neck: supple, normal ROM - Respiratory Respiratory effort: normal Respiratory: bilateral: CTA, rales, rhonchi - Breasts Breasts: normal - Cardiovascular Heart rate: 78 Rhythm: regular Heart Sounds: Present: S1 & S2. Absent: gallop, rub Extremities: no ischemia, pulses intact, No edema, normal color, Full ROM - Gastrointestinal General gastrointestinal: Present: soft, non-tender, non-distended, normal bowel sounds - Genitourinary Female genitourinary: normal - Integumentary Integumentary: clear, warm, dry - Musculoskeletal Musculoskeletal: 1, strength equal bilaterally - Neurologic Neurologic: moves all extremities - Psychiatric Psychiatric: memory intact, appropriate mood/affect, intact judgment & insight - Allied health notes Allied health notes reviewed: nursing, case management - Labs CBC & Chem 7: 05/28/19 04:14 05/28/19 04:14
--- NOTE | 2019-05-29 14:02 | Ultrasound Report ---
ULTRASOUND THYROID INDICATION / CLINICAL INFORMATION: thyroid nodule. Evaluate nodule seen on CT chest COMPARISON: CTA chest from 2 days prior. FINDINGS: RIGHT LOBE: Size = 3.7 x 1.3 x 1.4 cm. - Echogenicity: Normal. - Vascularity: Normal. - Nodules < 1 cm: None. - Nodules >= 1 cm or Suspicious Nodules: None. LEFT LOBE: Size = 3.3 x 1.2 x 1.4 cm. - Echogenicity: Normal. - Vascularity: Normal. - Nodules < 1 cm: 6 mm hypoechoic structure in the upper pole with marginal calcification. - Nodules >= 1 cm or Suspicious Nodules: None. ISTHMUS: No significant abnormality. Thickness = 0.6 cm. - Nodules < 1 cm: None. - Nodules >= 1 cm or Suspicious Nodules: None. LYMPH NODES: No abnormal lymph nodes. PARATHYROID GLANDS: No abnormal parathyroid gland. ADDITIONAL FINDINGS: None. IMPRESSION: 1. Left upper thyroid pole finding as outlined above could represent a tiny cyst. Note: Nodule size based on mean (average) size of 3 dimensions. Note: Nodules < 1 cm do not typically require follow-up or FNA unless there are suspicious features ( JAYA, 2015) ACR TI-RADS Thyroid Nodule Recommendations TI-RADS 1 (0 points) -- Benign. No FNA or follow-up. TI-RADS 2 (1-2 points) -- Not suspicious. No FNA or follow-up. TI-RADS 3 (3 points) -- Mildly suspicious. Follow up in 1 year if 1.5 cm. FNA if 2.5 cm. TI-RADS 4 (4-6 points) -- Moderately suspicious. Follow up in 1 year if 1.0 cm. FNA if 1.5 cm. TI-RADS 5 (7+ points) -- Highly suspicious. Follow up in 1 year if 0.5 cm. FNA if 1.0 cm. Signer Name: Jose Whalen MD Signed: 05/29/2019 1:58 PM Workstation Name: [id number]
--- NOTE | 2019-05-29 15:04 | Progress Note ---
Assessment and Plan Acute hypoxemic respiratory failure RLL- CAP vs atelectasis Tobacco use disorder Chronic pain on narcotics Diastolic dysfunction HFpEF Bilateral adrenal nodularity on CT. - Continue supplemental O2 to keep O2 sats>90% -IV antibiotics, IV tapering steroid -Gentle diuresis while monitoring renal function, electrolyte profile and hemody namics -Home O2 assessment on discharge -Treat with antibiotics for a total of 5 days -Bronchodilators - Patient has long history of tobacco smoking, she is also morbidly obese - cannot rule out underlying obstructive sleep apnea - Need to follow up with the pulmonary outpatient for PFT -VTE prophylaxis -Poor appetite- supplements -VTE prophylaxis -Life style modifications -Analgesia, bowel regimen -Smoking cessation counselling fro >7 minutes at the bedside. -Chronic home medications -Follow up CT scan as outpatient to evaluate the adrenal nodularity and lung findings -Thyroid nodule work up per primary service. -Blood pressure optimization -Chronic home medications -Stress ulcer prophylaxis- patient is on high dose steroids Subjective Date of service: 05/29/19 Interval history: Follow up fro Acute hypoxic respiratory failure: CAP: Tobacco use disorder Seen and examined. Vitals, labs, medications, chart reviewed. States that she is feeling better. NO fevers or chills. Less cough, no nausea or vomiting, pain is better controlled. No acute overnight events. Daughter is visiting at the bedside. Objective - Exam Narrative Exam: Reviewed. GENERAL: Elderly obese white female lying on bed appeared to be in no respiratory Khyphotic HEENT: Normocephalic. Atraumatic. No conjunctival congestion or icterus. Patient has moist mucous membranes. NECK: Supple. Trachea midline. CHEST/LUNGS: Positive breath sounds auscultated bilaterally, Poor AE, long expiratory phase HEART/CARDIOVASCULAR: Regular in rate and rhythm. S1 and S2 positive. ABDOMEN: Abdomen is soft, non tender. Patient has normal bowel sounds. SKIN: There is no rash. Warm and dry. NEURO: No focal motor deficit. Follows command. MUSCULOSKELETAL: No joint effusion or tenderness. EXTRIMITY: No edema, no cyanosis or clubbing. PSYCH: Cooperative. Vital Signs - 12hr 05/29/19 05/29/19 05/29/19 06:57 08:15 10:43 Temperature 98.0 F Pulse Rate 91 H 100 H Pulse Rate [ 98 H Bilateral Throughout] Respiratory 16 Rate Respiratory 20 Rate [Bilateral Throughout] Blood Pressure 120/55 132/100 O2 Sat by Pulse 92 95 Oximetry 05/29/19 05/29/19 05/29/19 10:44 12:27 13:57 Temperature 97.8 F Pulse Rate 100 H 99 H Pulse Rate [ 104 H Bilateral Throughout] Respiratory 20 Rate Respiratory 20 Rate [Bilateral Throughout] Blood Pressure 132/62 134/64 O2 Sat by Pulse 91 Oximetry CBC and BMP: 05/28/19 04:14 05/28/19 04:14 ABG, PT/INR, D-dimer: ABG POC ABG pH 7.456 (7.35-7.45) H 05/26/19 22:26 POC ABG pCO2 39.5 (35-45) 05/26/19 22:26 POC ABG HCO3 27.8 (22-26 mml/L) 05/26/19 22:26 POC ABG Total CO2 29 (23-27mmol/L) 05/26/19 22:26 POC ABG O2 Sat 85 05/26/19 22:26 PT/INR, D-dimer PT 12.9 Sec. (12.2-14.9) 05/26/19 18:54 INR 0.98 (0.87-1.13) 05/26/19 18:54 Abnormal lab findings: Abnormal Labs 05/26/19 05/26/19 05/26/19 18:54 18:54 18:54 WBC 14.0 H RBC MCV 98 H RDW 15.9 H Lymph % (Auto) 7.3 L [place] % (Auto) 9.0 H Lymph # 1.0 L [place] # 1.3 H Seg Neutrophils % 82.5 H Seg Neuts % (Manual) Lymphocytes % (Manual) Seg Neutrophils # 11.5 H Seg Neutrophils # Man Lymphocytes # (Manual) APTT 41.1 H POC ABG pH BUN 29 H Creatinine Glucose 115 H CK-MB (CK-2) Rel Index 05/26/19 05/27/19 05/28/19 22:26 05:48 04:14 WBC 11.7 H RBC 3.50 L MCV RDW 15.3 H Lymph % (Auto) [place] % (Auto) Lymph # [place] # Seg Neutrophils % Seg Neuts % (Manual) 93.0 H Lymphocytes % (Manual) 5.0 L Seg Neutrophils # Seg Neutrophils # Man 10.9 H Lymphocytes # (Manual) 0.6 L APTT POC ABG pH 7.456 H BUN Creatinine Glucose CK-MB (CK-2) Rel Index 5.2 H 05/28/19 04:14 WBC RBC MCV RDW Lymph % (Auto) [place] % (Auto) Lymph # [place] # Seg Neutrophils % Seg Neuts % (Manual) Lymphocytes % (Manual) Seg Neutrophils # Seg Neutrophils # Man Lymphocytes # (Manual) APTT POC ABG pH BUN 34 H Creatinine 0.6 L Glucose 124 H CK-MB (CK-2) Rel Index
[2019-05-30] MEDS: AZITHROMYCIN 500 MG in SODIUM CHLORIDE 0.9% 250ML 250 ML IV SCH (01:59)
[2019-05-30] MEDS: cefTRIAXone/NS 2 GM/100 ML 2 GM/100 ML BAG IV SCH (01:59)
[2019-05-30] MEDS: DOCUSATE SODIUM 100 MG CAP PO SCH ×2 (10:23→22:38)
[2019-05-30] MEDS: POLYETHYLENE GLYCOL 3350 17 GM POWDER PO SCH (10:25)
[2019-05-30] MEDS: oxyCODONE /ACETAMINOPHEN 5-325MG TAB PO PRN ×3 (10:41→23:42)
[2019-05-30] MEDS: amLODIPine 10 MG TAB PO SCH (10:58)
[2019-05-30] MEDS: HEPARIN 5,000 UNIT/1 ML VIAL SUB-Q SCH ×2 (10:59→22:38)
[2019-05-30] MEDS: FUROSEMIDE 40 MG TAB PO SCH (11:32)
[2019-05-30] MEDS: methylPREDNISolone Sod Succinate 125 MG/2 ML INJ IV SCH ×2 (12:09→22:37)
[2019-05-30] MEDS: LISINOPRIL 20 MG TAB PO SCH (12:11)
--- NOTE | 2019-05-30 14:29 | Progress Note ---
Assessment and Plan Patient alert, awake and resting on 3 litres o2. O2 saturation 96%.No acute respiratory distress at rest. Patient denies chest pain or shortness of breath or excessive cough. Denies smoking or alcohol abuse. Complaining Back pain.Patient has ANGIO CT of chest reported no PE. Bibasilar atelectatic changes with possibility of pneumonitis in the right lower lobe. Small right and minimal left pleural effusions are seen. Also reported interstitial pulmonary edema. - Patient Problems (1) Right lower lobe pneumonia Current Visit: Yes Status: Acute Plan to address problem: Patient is on ceftrioxone and zithromax. (2) SOB (shortness of breath) Current Visit: Yes Status: Acute Plan to address problem: Improved. Resting on 3 litres O2. O2 saturation 96%. (3) Hypoxemia Current Visit: Yes Status: Acute Plan to address problem: ABGs on room air. PO2 result not reported. ABGs on room air.. (4) Interstitial pulmonary disease Current Visit: Yes Status: Acute Plan to address problem: Interstitial pulmonary edema vs chronic fibrosis. CAT scan of chest reported interstial pulmonary edema. Patient is on I/V Lasix. Subjective Date of service: 05/30/19 Interval history: Patient alert, awake and resting on 3 litres o2. O2 saturation 96%.No acute respiratory distress at rest. Patient denies chest pain or shortness of breath or excessive cough. Denies smoking or alcohol abuse. Complaining Back pain.Patient has ANGIO CT of chest reported no PE. Bibasilar atelectatic changes with possibility of pneumonitis in the right lower lobe. Small right and minimal left pleural effusions are seen. Also reported interstitial pulmonary edema. Objective Vital Signs - 12hr 05/30/19 05/30/19 05/30/19 05:21 09:50 11:20 Temperature 98.1 F 98.2 F Pulse Rate 91 H 91 H Respiratory 18 18 Rate Blood Pressure 123/50 132/51 O2 Sat by Pulse 96 96 Oximetry 05/30/19 05/30/19 05/30/19 11:51 12:11 13:11 Temperature 97.4 F L 98.7 F Pulse Rate 94 H 94 H 92 H Respiratory 18 22 Rate Blood Pressure 140/64 140/64 128/49 O2 Sat by Pulse 94 96 Oximetry Constitutional: no acute distress, alert Eyes: non-icteric ENT: oropharynx moist Neck: supple, no lymphadenopathy Ascultation: Bilateral: rales Cardiovascular: regular rate and rhythm Gastrointestinal: normoactive bowel sounds, soft, non-tender Integumentary: normal Extremities: no cyanosis, no edema Neurologic: normal mental status, non-focal exam, pupils equal and round, CN II- XII normal Psychiatric: mood appropriate CBC and BMP: 05/28/19 04:14 05/28/19 04:14 ABG, PT/INR, D-dimer: ABG POC ABG pH 7.456 (7.35-7.45) H 05/26/19 22:26 POC ABG pCO2 39.5 (35-45) 05/26/19 22:26 POC ABG HCO3 27.8 (22-26 mml/L) 05/26/19 22:26 POC ABG Total CO2 29 (23-27mmol/L) 05/26/19 22:26 POC ABG O2 Sat 85 05/26/19 22:26 PT/INR, D-dimer PT 12.9 Sec. (12.2-14.9) 05/26/19 18:54 INR 0.98 (0.87-1.13) 05/26/19 18:54 Abnormal lab findings: Abnormal Labs 05/26/19 05/26/19 05/26/19 18:54 18:54 18:54 WBC 14.0 H RBC MCV 98 H RDW 15.9 H Lymph % (Auto) 7.3 L Barton % (Auto) 9.0 H Lymph # 1.0 L Barton # 1.3 H Seg Neutrophils % 82.5 H Seg Neuts % (Manual) Lymphocytes % (Manual) Seg Neutrophils # 11.5 H Seg Neutrophils # Man Lymphocytes # (Manual) APTT 41.1 H POC ABG pH BUN 29 H Creatinine Glucose 115 H CK-MB (CK-2) Rel Index 05/26/19 05/27/19 05/28/19 22:26 05:48 04:14 WBC 11.7 H RBC 3.50 L MCV RDW 15.3 H Lymph % (Auto) Barton % (Auto) Lymph # Barton # Seg Neutrophils % Seg Neuts % (Manual) 93.0 H Lymphocytes % (Manual) 5.0 L Seg Neutrophils # Seg Neutrophils # Man 10.9 H Lymphocytes # (Manual) 0.6 L APTT POC ABG pH 7.456 H BUN Creatinine Glucose CK-MB (CK-2) Rel Index 5.2 H 05/28/19 04:14 WBC RBC MCV RDW Lymph % (Auto) Barton % (Auto) Lymph # Barton # Seg Neutrophils % Seg Neuts % (Manual) Lymphocytes % (Manual) Seg Neutrophils # Seg Neutrophils # Man Lymphocytes # (Manual) APTT POC ABG pH BUN 34 H Creatinine 0.6 L Glucose 124 H CK-MB (CK-2) Rel Index Chest x-ray: report reviewed, image reviewed CT scan - chest: report reviewed, image reviewed Additional Studies: HEST PA AND LATERAL VIEWS 05/26/19 INDICATION: Chest Pain. COMPARISON: None FINDINGS: Support devices: None Heart: Upper limits of normal Lungs/Pleura: Diffuse interstitial lung disease with no significant pleural fluid. IMPRESSION: 1. Interstitial lung disease. At least some is thought to be chronic. Suggest follow-up to assess interstitial edema versus chronic fibrosis. ANGIO CT OF CHEST: 05/26/19 IMPRESSION: 1. No evidence of pulmonary thromboembolism 2. Probable diffuse interstitial pulmonary edema 3. Bibasilar atelectatic changes with possibility of pneumonitis in the right lower lobe. Small right and minimal left pleural effusions are seen. 4. Small lesion in the isthmus of the thyroid. See below. 5. 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 No acute changes are seen however. 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 6. Cholelithiasis without acute change seen 7. Bilateral adrenal nodularity. Recommend follow-up.
--- NOTE | 2019-05-30 16:13 | Discharge Summary ---
Providers - Providers Attending physician: ANTON GUY 05/27/19 14:53 Physical Therapy Evaluation and Treat [CONS] Routine Comment: Reason For Exam: placement 05/28/19 11:55 Consult to Physician [CONS] Routine Comment: Consulting Provider: NACHO KING Physician Instructions: Reason For Exam: respiratory failure Primary care physician: HOP WORKER Hospitalization Condition: Stable Disposition: DC-30 STILL A PATIENT Exam - Constitutional Vitals: Temp Pulse Resp BP Pulse Ox 98.7 F 92 H 22 128/49 96 05/30/19 13:11 05/30/19 13:11 05/30/19 13:11 05/30/19 13:11 05/30/19 13:11 Plan Follow up with: PRIMARY CARE, [Primary Care Provider] - 3-5 Days
--- NOTE | 2019-05-30 16:33 | Progress Note ---
Assessment and Plan In Acute respiratory failure - Likely due to acute diastolic heart failure, commonly acquired pneumonia and possible underlying COPD - Continue supplemental O2, IV antibiotics, IV tapering steroid - Also given a couple doses of IV Lasix- will follow response -2-D echo showed preserved EF with possible diastolic dysfunction - Pulmonary following, requested for home O2 assessment CAP, b/l - Continue IV antibiotics - We will treat for total of 5 days - COPD with acute exertion - Patient has long history of tobacco smoking, she is also morbidly obese - cannot rule out underlying obstructive sleep apnea - Continue nebulizer breathing treatment, tapering IV steroids and IV antibiotics - Need to follow up with the pulmonary outpatient for PFT - Assess for home O2 requirement on discharge Room air oxygen saturation ordered-if lower than 90 patient will qualify for home oxygen Acute diastolic heart failure - Status post IV Lasix, will change to by mouth today - Continue supportive care, supplemental oxygen Osteoarthritis, supportive care, continue home meds Morbid obesity, dietary regimen for weight reduction as appropriate Thyroid nodule, order TSH and T4, thyroid ultrasound Tobacco abuse, counseled for cessation DVT prophylaxis, Lovenox Possible discharge tomorrow on home oxygen or without home oxygen depending on room O2 sats Subjective Date of service: 05/30/19 Principal diagnosis: acute respiratory failure, CHF exacerbation and COPD exacerbation Interval history: 89-year-old female past medical history of hypertension and tobacco abuse for the last 50 years but one pack per day presents emergency Department with her daughter reports having some greenish the worsening shortness of breath over the last 1 week . Symptomatically better. Room air oxygen level pending. Objective - Constitutional Vitals: Vital Signs - 12hr 05/30/19 05/30/19 05/30/19 05:21 09:50 11:20 Temperature 98.1 F 98.2 F Pulse Rate 91 H 91 H Respiratory 18 18 Rate Blood Pressure 123/50 132/51 O2 Sat by Pulse 96 96 Oximetry 05/30/19 05/30/19 05/30/19 11:51 12:11 13:11 Temperature 97.4 F L 98.7 F Pulse Rate 94 H 94 H 92 H Respiratory 18 22 Rate Blood Pressure 140/64 140/64 128/49 O2 Sat by Pulse 94 96 Oximetry General appearance: Present: no acute distress, well-nourished - EENT Eyes: PERRL, EOM intact ENT: hearing intact, clear oral mucosa Ears: bilateral: normal - Neck Neck: supple, normal ROM - Respiratory Respiratory effort: normal Respiratory: bilateral: CTA, rhonchi, wheezing - Breasts Breasts: normal - Cardiovascular Rhythm: regular Heart Sounds: Present: S1 & S2. Absent: gallop, rub Extremities: no ischemia, pulses intact, No edema, normal color, Full ROM - Gastrointestinal General gastrointestinal: Present: soft, non-tender, non-distended, normal bowel sounds Rectal Exam: deferred - Genitourinary Female genitourinary: normal - Integumentary Integumentary: clear, warm, dry - Musculoskeletal Musculoskeletal: 1, strength equal bilaterally - Neurologic Neurologic: moves all extremities - Psychiatric Psychiatric: memory intact, appropriate mood/affect, intact judgment & insight - Labs CBC & Chem 7: 05/28/19 04:14 05/28/19 04:14
[2019-05-30] MEDS: IPRATROPIUM/ALBUTEROL SULFATE 3 ML AMPUL.NEB IH SCH ×2 (18:17→20:53)
[2019-05-31] MEDS: cefTRIAXone/NS 2 GM/100 ML 2 GM/100 ML BAG IV SCH (01:14)
[2019-05-31] MEDS: AZITHROMYCIN 500 MG in SODIUM CHLORIDE 0.9% 250ML 250 ML IV SCH (01:57)
[2019-05-31 05:16] LABS: Hematocrit 32.5 % (30.3-42.9); Hemoglobin 10.8 gm/dl (10.1-14.3); Mean Corpuscular HGB Conc 33 % (30-34); Mean Corpuscular Volume 97 fl (79-97); Platelet Count 285 K/mm3 (140-440); Red Blood Count 3.35 M/mm3 (3.65-5.03)
[2019-05-31 05:35] LABS: Alanine Aminotransferase 25 units/L (7-56); Albumin 3.2 g/dL (3.9-5); BUN/Creatinine Ratio 45; Blood Urea Nitrogen 27 mg/dL (7-17); Calcium 8.7 mg/dL (8.4-10.2); Hemolysis Index 17
[2019-05-31] MEDS: IPRATROPIUM/ALBUTEROL SULFATE 3 ML AMPUL.NEB IH SCH ×4 (08:40→20:00)
[2019-05-31 09:00] LABS: Total Cells Counted 100
[2019-05-31 09:02] LABS: Basophils % (Manual) 0 % (0.0-1.8); Eosinophils % (Manual) 0 % (0.0-4.3)
[2019-05-31 09:03] LABS: Macrocytosis Few; Ovalocytes Few; Platelet Estimate Consistent w Auto
[2019-05-31] MEDS: oxyCODONE /ACETAMINOPHEN 5-325MG TAB PO PRN ×3 (10:02→23:17)
[2019-05-31] MEDS: LISINOPRIL 20 MG TAB PO SCH (10:04)
[2019-05-31] MEDS: FUROSEMIDE 40 MG TAB PO SCH (10:04)
[2019-05-31] MEDS: HEPARIN 5,000 UNIT/1 ML VIAL SUB-Q SCH ×2 (10:05→22:12)
[2019-05-31] MEDS: methylPREDNISolone Sod Succinate 125 MG/2 ML INJ IV SCH ×2 (10:06→22:12)
[2019-05-31] MEDS: DOCUSATE SODIUM 100 MG CAP PO SCH ×2 (11:13→22:13)
--- NOTE | 2019-05-31 13:43 | Progress Note ---
Assessment and Plan atient sleeping at this time on 3 litres o2. O2 saturation 96%.Not responding to verbal stimuli. Patient is in deep sleep.No acute respiratory distress at rest. Patient has ANGIO CT of chest reported no PE. Bibasilar atelectatic changes wi th possibility of pneumonitis in the right lower lobe. Small right and minimal left pleural effusions are seen. Also reported interstitial pulmonary edema.. ABG on room air. POC ABG pH 7.452 (7.35-7.45) H 05/31/19 10:06 POC ABG pCO2 43.8 (35-45) 05/31/19 10:06 POC ABG pO2 50 (80-105) L 05/31/19 10:06 POC ABG HCO3 30.6 (22-26 mml/L) 05/31/19 10:06 POC ABG Total CO2 32 (23-27mmol/L) 05/31/19 10:06 POC ABG O2 Sat 86 05/31/19 10:06 Patients PO2 on room air 5o. Patient is candidate for home O2. Recommend O2 2 litres via nasal canula. - Patient Problems (1) Right lower lobe pneumonia Current Visit: Yes Status: Acute Plan to address problem: Patient is on ceftrioxone and zithromax. (2) SOB (shortness of breath) Current Visit: Yes Status: Acute Plan to address problem: Improved. Resting on 3 litres O2. O2 saturation 96%. (3) Hypoxemia Current Visit: Yes Status: Acute Plan to address problem: ABG on room air. POC ABG pH 7.452 (7.35-7.45) H 05/31/19 10:06 POC ABG pCO2 43.8 (35-45) 05/31/19 10:06 POC ABG pO2 50 (80-105) L 05/31/19 10:06 POC ABG HCO3 30.6 (22-26 mml/L) 05/31/19 10:06 POC ABG Total CO2 32 (23-27mmol/L) 05/31/19 10:06 POC ABG O2 Sat 86 05/31/19 10:06 Patients PO2 on room air 5o. Patient is candidate for home O2. Recommend O2 2 litres via nasal canula. (4) Interstitial pulmonary disease Current Visit: Yes Status: Acute Plan to address problem: Interstitial pulmonary edema vs chronic fibrosis. CAT scan of chest reported interstial pulmonary edema. Patient is on I/V Lasix. Subjective Date of service: 05/31/19 Principal diagnosis: acute respiratory failure, CHF exacerbation and COPD exacerbation Interval history: Patient sleeping at this time on 3 litres o2. O2 saturation 96%.Not responding to verbal stimuli. Patient is in deep sleep.No acute respiratory distress at rest. Patient has ANGIO CT of chest reported no PE. Bibasilar atelectatic changes with possibility of pneumonitis in the right lower lobe. Small right and minimal left pleural effusions are seen. Also reported interstitial pulmonary edema. ABG on room air. POC ABG pH 7.452 (7.35-7.45) H 05/31/19 10:06 POC ABG pCO2 43.8 (35-45) 05/31/19 10:06 POC ABG pO2 50 (80-105) L 05/31/19 10:06 POC ABG HCO3 30.6 (22-26 mml/L) 05/31/19 10:06 POC ABG Total CO2 32 (23-27mmol/L) 05/31/19 10:06 POC ABG O2 Sat 86 05/31/19 10:06 Patients PO2 on room air 5o. Patient is candidate for home O2. Recommend O2 2 litres via nasal canula. Objective Vital Signs - 12hr 05/31/19 05/31/19 05/31/19 04:55 07:45 09:17 Temperature 98.1 F Pulse Rate 94 H Pulse Rate [ Bilateral Throughout] Respiratory 24 16 Rate Respiratory Rate [Bilateral Throughout] Blood Pressure 117/54 O2 Sat by Pulse 93 94 Oximetry 05/31/19 05/31/19 05/31/19 09:18 09:58 10:04 Temperature Pulse Rate 94 H Pulse Rate [ 94 H Bilateral Throughout] Respiratory Rate Respiratory 16 Rate [Bilateral Throughout] Blood Pressure 137/68 O2 Sat by Pulse 92 Oximetry 05/31/19 12:09 Temperature 97.8 F Pulse Rate 95 H Pulse Rate [ Bilateral Throughout] Respiratory 20 Rate Respiratory Rate [Bilateral Throughout] Blood Pressure 162/65 O2 Sat by Pulse 96 Oximetry Constitutional: no acute distress, alert Eyes: non-icteric ENT: oropharynx moist Neck: supple, no lymphadenopathy Ascultation: Bilateral: rales Cardiovascular: regular rate and rhythm Gastrointestinal: normoactive bowel sounds, soft, non-tender Integumentary: normal Extremities: no cyanosis, no edema Neurologic: normal mental status, non-focal exam, pupils equal and round, CN II- XII normal Psychiatric: mood appropriate CBC and BMP: 05/31/19 04:47 05/31/19 04:47 ABG, PT/INR, D-dimer: ABG POC ABG pH 7.452 (7.35-7.45) H 05/31/19 10:06 POC ABG pCO2 43.8 (35-45) 05/31/19 10:06 POC ABG pO2 50 (80-105) L 05/31/19 10:06 POC ABG HCO3 30.6 (22-26 mml/L) 05/31/19 10:06 POC ABG Total CO2 32 (23-27mmol/L) 05/31/19 10:06 POC ABG O2 Sat 86 05/31/19 10:06 PT/INR, D-dimer PT 12.9 Sec. (12.2-14.9) 05/26/19 18:54 INR 0.98 (0.87-1.13) 05/26/19 18:54 Abnormal lab findings: Abnormal Labs 05/26/19 05/26/19 05/26/19 18:54 18:54 18:54 WBC 14.0 H RBC MCV 98 H RDW 15.9 H Lymph % (Auto) 7.3 L Bucks % (Auto) 9.0 H Lymph # 1.0 L Bucks # 1.3 H Seg Neutrophils % 82.5 H Seg Neuts % (Manual) Lymphocytes % (Manual) Seg Neutrophils # 11.5 H Seg Neutrophils # Man Lymphocytes # (Manual) APTT 41.1 H POC ABG pH POC ABG pO2 BUN 29 H Creatinine Glucose 115 H CK-MB (CK-2) Rel Index Total Protein Albumin 05/26/19 05/27/19 05/28/19 22:26 05:48 04:14 WBC 11.7 H RBC 3.50 L MCV RDW 15.3 H Lymph % (Auto) Bucks % (Auto) Lymph # Bucks # Seg Neutrophils % Seg Neuts % (Manual) 93.0 H Lymphocytes % (Manual) 5.0 L Seg Neutrophils # Seg Neutrophils # Man 10.9 H Lymphocytes # (Manual) 0.6 L APTT POC ABG pH 7.456 H POC ABG pO2 BUN Creatinine Glucose CK-MB (CK-2) Rel Index 5.2 H Total Protein Albumin 05/28/19 05/31/19 05/31/19 04:14 04:47 04:47 WBC RBC 3.35 L MCV RDW Lymph % (Auto) [place]ucks % (Auto) Lymph # Bucks # Seg Neutrophils % Seg Neuts % (Manual) 94.0 H Lymphocytes % (Manual) 4.0 L Seg Neutrophils # Seg Neutrophils # Man 9.5 H Lymphocytes # (Manual) 0.4 L APTT POC ABG pH POC ABG pO2 BUN 34 H 27 H Creatinine 0.6 L 0.6 L Glucose 124 H 162 H CK-MB (CK-2) Rel Index Total Protein 5.6 L D Albumin 3.2 L 05/31/19 10:06 WBC RBC MCV RDW Lymph % (Auto) Bucks % (Auto) Lymph # Bucks # Seg Neutrophils % Seg Neuts % (Manual) Lymphocytes % (Manual) Seg Neutrophils # Seg Neutrophils # Man Lymphocytes # (Manual) APTT POC ABG pH 7.452 H POC ABG pO2 50 L BUN Creatinine Glucose CK-MB (CK-2) Rel Index Total Protein Albumin
[2019-05-31] MEDS: amLODIPine 10 MG TAB PO SCH (14:03)
--- NOTE | 2019-05-31 14:15 | Discharge Summary ---
Providers - Providers Date of Admission: 05/27/19 14:59 Date of discharge: 05/31/19 Attending physician: JAMMIE RIVAS 05/27/19 14:53 Physical Therapy Evaluation and Treat [CONS] Routine Comment: Reason For Exam: placement 05/28/19 11:55 Consult to Physician [CONS] Routine Comment: Consulting Provider: NACHO KING Physician Instructions: Reason For Exam: respiratory failure Primary care physician: [employer]PPORT Hospitalization Condition: Fair Hospital course: Acute respiratory failure - Due to acute diastolic heart failure, community acquired pneumonia and COPD - Managed with supplemental O2, IV antibiotics, IV tapering steroid - Also given a couple doses of IV Lasix -2-D echo showed preserved EF with possible diastolic dysfunction - Pulmonary following, Pneumonia RLL Treated with IV antibiotics - COPD with acute exacerbation - Patient has long history of tobacco smoking, she is also morbidly obese - cannot rule out underlying obstructive sleep apnea - Continue nebulizer breathing treatment, tapering IV steroids and IV antibiotics - Need to follow up with the pulmonary outpatient for PFT Acute diastolic heart failure - Treated with lasix - Continue supportive care, supplemental oxygen Osteoarthritis, supportive care, continue home meds Morbid obesity, dietary regimen for weight reduction as appropriate Thyroid nodule, left upper. To follow with PCP in 1 week Tobacco abuse, counseled for cessation DVT prophylaxis, Lovenox Total time spent on discharge, 34 mins Disposition: [id number] HOME UNDER HOME HLTH - Discharge Diagnoses (1) Sepsis Status: Acute (2) Acute respiratory failure Status: Acute (3) Right lower lobe pneumonia Status: Acute (4) COPD exacerbation Status: Acute (5) Acute diastolic (congestive) heart failure Status: Acute (6) Thyroid nodule Status: Acute (7) Adrenal nodule Status: Acute Core Measure Documentation - Palliative Care Palliative Care/ Comfort Measures: Not Applicable - Core Measures Any of the following diagnoses?: heart failure - Heart Failure Discharge Requirements JOSE/ARB for LVSD if EF <40%: Not Applicable Beta tanika at discharge: No Reason for no beta tanika on DC: COPD Exam - Constitutional Vitals: Temp Pulse Resp BP Pulse Ox 97.8 F 95 H 20 162/65 96 05/31/19 12:09 05/31/19 12:09 05/31/19 12:09 05/31/19 12:09 05/31/19 12:09 Plan Activity: advance as tolerated Diet: low fat, low cholesterol, low salt Special Instructions: home oxygen via, home health RN Durable Medical Equipment Needed Upon Discharge: Walker-Standard Plan of Treatment: 1.Follow up with PCP in 1 week. 2.Follow up thyroid nodule with PCP in 1 week 3.Follow up Adrenal nodule with PCP in 1 week. 4.Follow up with Dr. Duncan in 1 week. 5.Continue Oxygen at 2l/min NC Follow up with: PRIMARY CARE, [Primary Care Provider] - 3-5 Days Prescriptions: cefUROXime [Ceftin] 500 mg PO Q12H 3 Days #12 tablet Prednisone [predniSONE 5 mg (6-Day Pack, 21 Tabs)] 5 mg PO .TAPER #1 tab.ds.pk Albuterol Sulfate [Proair Respiclick] 90 mcg IH Q4H PRN #1 [email or web address] PRN Reason: shortness of breath or wheezin Azithromycin [Zithromax TAB] 500 mg PO QDAY #1 tablet
--- NOTE | 2019-05-31 22:41 | Progress Note ---
Assessment and Plan Assessment and plan: In Acute respiratory failure - Likely due to acute diastolic heart failure, commonly acquired pneumonia and possible underlying COPD - Continue supplemental O2, IV antibiotics, IV tapering steroid - Also given a couple doses of IV Lasix- will follow response -2-D echo showed preserved EF with possible diastolic dysfunction - Pulmonary following, -Ws to go home on home Oxygen, but Nurse called that Oxygen not delivered CAP, b/l - Continue IV antibiotics - We will treat for total of 5 days - COPD with acute exertion - Patient has long history of tobacco smoking, she is also morbidly obese -cannot rule out underlying obstructive sleep apnea - Continue nebulizer breathing treatment, tapering IV steroids and IV antibiotics - Need to follow up with the pulmonary outpatient for PFT - Assess for home O2 requirement on discharge Room air oxygen saturation ordered-if lower than 90 patient will qualify for home oxygen Acute diastolic heart failure - Status post IV Lasix, will change to by mouth today - Continue supportive care, supplemental oxygen Osteoarthritis, supportive care, continue home meds Morbid obesity, dietary regimen for weight reduction as appropriate Thyroid nodule, order TSH and T4, thyroid ultrasound Tobacco abuse, counseled for cessation DVT prophylaxis, Lovenox For discharge tomorrow after home oxygen delivered. History Interval history: Feels better No SOB currently Discharge orders put in but did not go because Oxygen not delivered yet Hospitalist Physical - Physical exam Narrative exam: Gen: Not in acute distress, lying in bed,obese HEENT: Normocephalic, atraumatic Neck: supple, no JVD Heart: S1 and S2 reg, no murmurs, rubs or gallop Lungs: Decreased breath sounds, no wheeze Abd: soft, non tender, non distended, normal BS, Ext: No edema, no clubbing, no cyanosis Neuro: Awake, alert, oriented X 3, no focal neurological signs - Constitutional Vitals: Temp Pulse Resp BP Pulse Ox 97.8 F 95 H 16 162/65 96 05/31/19 12:09 05/31/19 19:58 05/31/19 19:58 05/31/19 12:09 05/31/19 20:11 General appearance: Present: no acute distress, well-nourished Results - Labs CBC & Chem 7: 05/31/19 04:47 05/31/19 04:47 Labs: Laboratory Last Values WBC 10.1 K/mm3 (4.5-11.0) 05/31/19 04:47 RBC 3.35 M/mm3 (3.65-5.03) L 05/31/19 04:47 Hgb 10.8 gm/dl (10.1-14.3) 05/31/19 04:47 Hct 32.5 % (30.3-42.9) 05/31/19 04:47 MCV 97 fl (79-97) 05/31/19 04:47 MCH 32 pg (28-32) 05/31/19 04:47 MCHC 33 % (30-34) 05/31/19 04:47 RDW 15.0 % (13.2-15.2) 05/31/19 04:47 Plt Count 285 K/mm3 (140-440) 05/31/19 04:47 Lymph % (Auto) 7.3 % (13.4-35.0) L 05/26/19 18:54 [place] % (Auto) 9.0 % (0.0-7.3) H 05/26/19 18:54 Eos % (Auto) 0.5 % (0.0-4.3) 05/26/19 18:54 Baso % (Auto) 0.7 % (0.0-1.8) 05/26/19 18:54 Lymph # 1.0 K/mm3 (1.2-5.4) L 05/26/19 18:54 [place] # 1.3 K/mm3 (0.0-0.8) H 05/26/19 18:54 Eos # 0.1 K/mm3 (0.0-0.4) 05/26/19 18:54 Baso # 0.1 K/mm3 (0.0-0.1) 05/26/19 18:54 Add Manual Diff Complete 05/31/19 04:47 Total Counted 100 05/31/19 04:47 Seg Neutrophils % Design Drafter 05/31/19 04:47 Seg Neuts % (Manual) 94.0 % (40.0-70.0) H 05/31/19 04:47 Band Neutrophils % 0 % 05/31/19 04:47 Lymphocytes % (Manual) 4.0 % (13.4-35.0) L 05/31/19 04:47 Reactive Lymphs % (Man) 0 % 05/31/19 04:47 Monocytes % (Manual) 2.0 % (0.0-7.3) 05/31/19 04:47 Eosinophils % (Manual) 0 % (0.0-4.3) 05/31/19 04:47 Basophils % (Manual) 0 % (0.0-1.8) 05/31/19 04:47 Metamyelocytes % 0 % 05/31/19 04:47 Myelocytes % 0 % 05/31/19 04:47 Promyelocytes % 0 % 05/31/19 04:47 Blast Cells % 0 % 05/31/19 04:47 Nucleated RBC % Not Reportable 05/31/19 04:47 Seg Neutrophils # 11.5 K/mm3 (1.8-7.7) H 05/26/19 18:54 Seg Neutrophils # Man 9.5 K/mm3 (1.8-7.7) H 05/31/19 04:47 Band Neutrophils # 0.0 K/mm3 05/31/19 04:47 Lymphocytes # (Manual) 0.4 K/mm3 (1.2-5.4) L 05/31/19 04:47 Abs React Lymphs (Man) 0.0 K/mm3 05/31/19 04:47 Monocytes # (Manual) 0.2 K/mm3 (0.0-0.8) 05/31/19 04:47 Eosinophils # (Manual) 0.0 K/mm3 (0.0-0.4) 05/31/19 04:47 Basophils # (Manual) 0.0 K/mm3 (0.0-0.1) 05/31/19 04:47 Metamyelocytes # 0.0 K/mm3 05/31/19 04:47 Myelocytes # 0.0 K/mm3 05/31/19 04:47 Promyelocytes # 0.0 K/mm3 05/31/19 04:47 Blast Cells # 0.0 K/mm3 05/31/19 04:47 WBC Morphology Not Reportable 05/31/19 04:47 Hypersegmented Neuts Not Reportable 05/31/19 04:47 Hyposegmented Neuts Not Reportable 05/31/19 04:47 Hypogranular Neuts Not Reportable 05/31/19 04:47 Smudge Cells Not Reportable 05/31/19 04:47 Toxic Granulation Not Reportable 05/31/19 04:47 Toxic Vacuolation Not Reportable 05/31/19 04:47 Dohle Bodies Not Reportable 05/31/19 04:47 Pelger-Huet Anomaly Not Reportable 05/31/19 04:47 Yumiko Rods Not Reportable 05/31/19 04:47 Platelet Estimate Consistent w auto 05/31/19 04:47 Clumped Platelets Not Reportable 05/31/19 04:47 Plt Clumps, EDTA Not Reportable 05/31/19 04:47 Large Platelets Not Reportable 05/31/19 04:47 Giant Platelets Not Reportable 05/31/19 04:47 Platelet Satelliting Not Reportable 05/31/19 04:47 Plt Morphology Comment Not Reportable 05/31/19 04:47 RBC Morphology Not Reportable 05/31/19 04:47 Dimorphic RBCs Not Reportable 05/31/19 04:47 Polychromasia Not Reportable 05/31/19 04:47 Hypochromasia Not Reportable 05/31/19 04:47 Poikilocytosis Not Reportable 05/31/19 04:47 Anisocytosis Not Reportable 05/31/19 04:47 Microcytosis Not Reportable 05/31/19 04:47 Macrocytosis Few 05/31/19 04:47 Spherocytes Not Reportable 05/31/19 04:47 Pappenheimer Bodies Not Reportable 05/31/19 04:47 Sickle Cells Not Reportable 05/31/19 04:47 Target Cells Not Reportable 05/31/19 04:47 Tear Drop Cells Not Reportable 05/31/19 04:47 Ovalocytes Few 05/31/19 04:47 Helmet Cells Not Reportable 05/31/19 04:47 [place] Bodies Not Reportable 05/31/19 04:47 [place] Rings Not Reportable 05/31/19 04:47 [place] Cells Not Reportable 05/31/19 04:47 Bite Cells Not Reportable 05/31/19 04:47 Crenated Cell Not Reportable 05/31/19 04:47 Elliptocytes Not Reportable 05/31/19 04:47 Acanthocytes (Spur) Not Reportable 05/31/19 04:47 Rouleaux Not Reportable 05/31/19 04:47 Hemoglobin C Crystals Not Reportable 05/31/19 04:47 Schistocytes Not Reportable 05/31/19 04:47 Malaria parasites Not Reportable 05/31/19 04:47 Horacio Bodies Not Reportable 05/31/19 04:47 Hem Pathologist Commnt No 05/31/19 04:47 PT 12.9 Sec. (12.2-14.9) 05/26/19 18:54 INR 0.98 (0.87-1.13) 05/26/19 18:54 APTT 41.1 Sec. (24.2-36.6) H 05/26/19 18:54 POC ABG pH 7.452 (7.35-7.45) H 05/31/19 10:06 POC ABG pCO2 43.8 (35-45) 05/31/19 10:06 POC ABG pO2 50 (80-105) L 05/31/19 10:06 POC ABG HCO3 30.6 (22-26 mml/L) 05/31/19 10:06 POC ABG Total CO2 32 (23-27mmol/L) 05/31/19 10:06 POC ABG O2 Sat 86 05/31/19 10:06 POC ABG Base Excess 7 ((-2) - (+3)mmol/L) 05/31/19 10:06 FiO2 21 % 05/31/19 10:06 Sodium 137 mmol/L (137-145) 05/31/19 04:47 Potassium 4.7 mmol/L (3.6-5.0) 05/31/19 04:47 Chloride 98.7 mmol/L (98-107) 05/31/19 04:47 Carbon Dioxide 28 mmol/L (22-30) 05/31/19 04:47 Anion Gap 15 mmol/L 05/31/19 04:47 BUN 27 mg/dL (7-17) H 05/31/19 04:47 Creatinine 0.6 mg/dL (0.7-1.2) L 05/31/19 04:47 Estimated GFR > 60 ml/min 05/31/19 04:47 BUN/Creatinine Ratio 45 % 05/31/19 04:47 Glucose 162 mg/dL (65-100) H 05/31/19 04:47 Calcium 8.7 mg/dL (8.4-10.2) 05/31/19 04:47 Total Bilirubin < 0.20 mg/dL (0.1-1.2) 05/31/19 04:47 AST 19 units/L (5-40) 05/31/19 04:47 ALT 25 units/L (7-56) 05/31/19 04:47 Alkaline Phosphatase 58 units/L (35-129) 05/31/19 04:47 Total Creatine Kinase 107 units/L (30-135) 05/27/19 13:09 CK-MB (CK-2) 3.9 ng/mL (0.0-4.0) 05/27/19 13:09 CK-MB (CK-2) Rel Index 3.6 (0-4) 05/27/19 13:09 Troponin T < 0.010 ng/mL (0.00-0.029) 05/27/19 13:09 NT-Pro-B Natriuret Pep 836.2 pg/mL (0-900) 05/26/19 18:54 Total Protein 5.6 g/dL (6.3-8.2) L D 05/31/19 04:47 Albumin 3.2 g/dL (3.9-5) L 05/31/19 04:47 Albumin/Globulin Ratio 1.3 % 05/31/19 04:47 TSH 0.636 mlU/mL (0.270-4.200) 05/28/19 15:37 Free T4 1.22 ng/dL (0.76-1.46) 05/28/19 15:34 Active Medications - Current Medications Current Medications: Generic Name Dose Route Start Last Admin Trade Name Freq PRN Reason Stop Dose Admin Acetaminophen 650 mg 05/27/19 03:17 05/30/19 13:20 Tylenol PO 650 mg Q4H PRN Administration Fever >101 Albuterol/Ipratropium 1 ampul 05/27/19 14:00 05/31/19 20:00 Duoneb *Not For Prn Use* IH 1 ampul TIDRT ARA Administration Amlodipine Besylate 10 mg 05/28/19 10:00 05/31/19 14:03 Amlodipine PO 10 mg DAILY ARA Administration Atorvastatin Calcium 20 mg 05/27/19 22:00 05/31/19 22:12 Lipitor PO 20 mg QHS ARA Administration Bisacodyl 10 mg 05/28/19 12:25 05/28/19 22:26 Dulcolax [place] 10 mg QDAY PRN Administration Constipation Docusate Sodium 100 mg 05/28/19 13:00 05/31/19 22:13 Colace PO Not Given BID ARA Furosemide 20 mg 05/29/19 10:00 05/31/19 10:04 Lasix PO 20 mg QDAY ARA Administration Heparin Sodium (Porcine) 5,000 unit 05/27/19 03:15 05/31/19 22:12 Heparin SUB-Q 5,000 unit Q12HR ARA Administration Azithromycin 500 mg/ Sodium 250 mls @ 250 mls/hr 05/28/19 02:00 05/31/19 01:57 Chloride IV 06/01/19 02:59 250 mls/hr 0200 ARA Administration Protocol Ceftriaxone Sodium 2 gm in 100 mls @ 200 mls/hr 05/28/19 02:00 05/31/19 01:14 Rocephin/Ns 2 Gm/100 Ml IV 200 mls/hr Q24H ARA Administration Protocol Lisinopril 20 mg 05/28/19 10:00 05/31/19 10:04 Zestril PO 20 mg QDAY ARA Administration Methylprednisolone Sodium Succinate 40 mg 05/27/19 22:00 05/31/19 22:12 Solu-Medrol IV 40 mg Q12HR ARA Administration Ondansetron HCl 4 mg 05/27/19 03:18 Zofran IV Q8H PRN Nausea And Vomiting Oxycodone/Acetaminophen 1 tab 05/27/19 16:15 05/31/19 16:31 Percocet 5/325 PO 1 tab Q6H PRN Administration Pain, Moderate (4-6) Nutrition/Malnutrition Assess - Dietary Evaluation Nutrition/Malnutrition Findings: Nutrition Notes Start: 05/27/19 11:45 Freq: Status: Active Protocol: Document 05/27/19 11:45 [email or web address] (Rec: 05/27/19 11:57 DW [id number]) Co-Sign 05/27/19 11:45 LP Nutrition Notes Need for Assessment generated from: Low BMI Initial or Follow up Brief Note Current Diagnosis Hypertension Other Pertinent Diagnosis Arthritis, Dyspnea Current Diet Low Sodium Diet Labs/Tests Reviewed Pertinent Medications Reviewed Height 5 ft 2 in Weight 82 kg [place] Body Weight (kg) 50.00 BMI 33.0 Percent of energy/protein needs met: Screen for Low BMI Weighed pt upon arrival and recorded 82kg 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 Pt also stated she drinks Enure for breakfast and cooks her meals or has a frozen meal. Verification Rep brought Ensure to pt because she was not given breakfast d/ t late arrival in room this AM . Burn Absent Trauma Absent Nutrition Intervention Anticipated Discharge Needs: Low Sodium Diet Revisit per MD consult or patient Sign Off request:
[2019-06-01] MEDS: cefTRIAXone/NS 2 GM/100 ML 2 GM/100 ML BAG IV SCH (01:53)
[2019-06-01] MEDS: AZITHROMYCIN 500 MG in SODIUM CHLORIDE 0.9% 250ML 250 ML IV SCH (01:57)
[2019-06-01] MEDS: IPRATROPIUM/ALBUTEROL SULFATE 3 ML AMPUL.NEB IH SCH ×3 (10:36→20:54)
[2019-06-01] MEDS: DOCUSATE SODIUM 100 MG CAP PO SCH (11:35)
[2019-06-01] MEDS: oxyCODONE /ACETAMINOPHEN 5-325MG TAB PO PRN (11:35)
[2019-06-01] MEDS: amLODIPine 10 MG TAB PO SCH (11:35)
[2019-06-01] MEDS: LISINOPRIL 20 MG TAB PO SCH (11:36)
[2019-06-01] MEDS: methylPREDNISolone Sod Succinate 125 MG/2 ML INJ IV SCH (11:36)
[2019-06-01] MEDS: FUROSEMIDE 40 MG TAB PO SCH (11:36)
[2019-06-01] MEDS: HEPARIN 5,000 UNIT/1 ML VIAL SUB-Q SCH (11:37)
--- NOTE | 2019-06-01 13:32 | Progress Note ---
Assessment and Plan Patient awake and on 2 litres O2. O2 saturation 94%.No acute respiratory distress at rest. Patient has ANGIO CT of chest reported no PE. Bibasilar atelectatic changes with possibility of pneumonitis in the right lower lobe. Small right and minimal left pleural effusions are seen. Also reported interstitial pulmonary edema. ABG on room air. POC ABG pH 7.452 (7.35-7.45) H 05/31/19 10:06 POC ABG pCO2 43.8 (35-45) 05/31/19 10:06 POC ABG pO2 50 (80-105) L 05/31/19 10:06 POC ABG HCO3 30.6 (22-26 mml/L) 05/31/19 10:06 POC ABG Total CO2 32 (23-27mmol/L) 05/31/19 10:06 POC ABG O2 Sat 86 05/31/19 10:06 Patients PO2 on room air 5o. Patient is candidate for home O2. Recommend O2 2 litres via nasal canula. Patient taking narcotic medications from Pain clinic. Recommend to find alternative pain medications for her pain. Narcotics can depress respiratory center and contribute for her hypoxia. - Patient Problems (1) Right lower lobe pneumonia Current Visit: Yes Status: Acute Plan to address problem: Patient is on ceftrioxone and zithromax. (2) SOB (shortness of breath) Current Visit: Yes Status: Acute Plan to address problem: Improved. Resting on 2 litres O2. O2 saturation 94%. (3) Hypoxemia Current Visit: Yes Status: Acute Plan to address problem: ABG on room air. POC ABG pH 7.452 (7.35-7.45) H 05/31/19 10:06 POC ABG pCO2 43.8 (35-45) 05/31/19 10:06 POC ABG pO2 50 (80-105) L 05/31/19 10:06 POC ABG HCO3 30.6 (22-26 mml/L) 05/31/19 10:06 POC ABG Total CO2 32 (23-27mmol/L) 05/31/19 10:06 POC ABG O2 Sat 86 05/31/19 10:06 Patients PO2 on room air 5o. Patient is candidate for home O2. Recommend O2 2 litres via nasal canula. (4) Interstitial pulmonary disease Current Visit: Yes Status: Acute Plan to address problem: Interstitial pulmonary edema vs chronic fibrosis. CAT scan of chest reported interstial pulmonary edema. Patient is on I/V Lasix. Recommend PFTs as out patient. Subjective Date of service: 06/01/19 Principal diagnosis: acute respiratory failure, CHF exacerbation and COPD exacerbation Interval history: Patient awake and on 2 litres O2. O2 saturation 94%.No acute respiratory distress at rest. Patient has ANGIO CT of chest reported no PE. Bibasilar atelectatic changes with possibility of pneumonitis in the right lower lobe. Small right and minimal left pleural effusions are seen. Also reported interstitial pulmonary edema. ABG on room air. POC ABG pH 7.452 (7.35-7.45) H 05/31/19 10:06 POC ABG pCO2 43.8 (35-45) 05/31/19 10:06 POC ABG pO2 50 (80-105) L 05/31/19 10:06 POC ABG HCO3 30.6 (22-26 mml/L) 05/31/19 10:06 POC ABG Total CO2 32 (23-27mmol/L) 05/31/19 10:06 POC ABG O2 Sat 86 05/31/19 10:06 Patients PO2 on room air 5o. Patient is candidate for home O2. Recommend O2 2 litres via nasal canula. Patient taking narcotic medications from Pain clinic. Recommend to find alternative pain medications for her pain. Narcotics can depress respiratory center and contribute for her hypoxia. Objective Vital Signs - 12hr 06/01/19 06/01/19 06/01/19 04:49 10:00 10:36 Temperature 98.5 F Pulse Rate 87 Pulse Rate [ 99 H Bilateral Throughout] Respiratory 18 Rate Respiratory 20 Rate [Bilateral Throughout] Blood Pressure 115/50 O2 Sat by Pulse 95 94 Oximetry 06/01/19 11:35 Temperature Pulse Rate 96 H Pulse Rate [ Bilateral Throughout] Respiratory Rate Respiratory Rate [Bilateral Throughout] Blood Pressure 142/55 O2 Sat by Pulse Oximetry Constitutional: no acute distress, alert Eyes: non-icteric ENT: oropharynx moist Neck: supple, no lymphadenopathy Ascultation: Bilateral: rales Cardiovascular: regular rate and rhythm Gastrointestinal: normoactive bowel sounds, soft, non-tender Integumentary: normal Extremities: no cyanosis, no edema Neurologic: normal mental status, non-focal exam, pupils equal and round, CN II- XII normal Psychiatric: mood appropriate CBC and BMP: 05/31/19 04:47 05/31/19 04:47 ABG, PT/INR, D-dimer: ABG POC ABG pH 7.452 (7.35-7.45) H 05/31/19 10:06 POC ABG pCO2 43.8 (35-45) 05/31/19 10:06 POC ABG pO2 50 (80-105) L 05/31/19 10:06 POC ABG HCO3 30.6 (22-26 mml/L) 05/31/19 10:06 POC ABG Total CO2 32 (23-27mmol/L) 05/31/19 10:06 POC ABG O2 Sat 86 05/31/19 10:06 PT/INR, D-dimer PT 12.9 Sec. (12.2-14.9) 05/26/19 18:54 INR 0.98 (0.87-1.13) 05/26/19 18:54 Abnormal lab findings: Abnormal Labs 05/26/19 05/26/19 05/26/19 18:54 18:54 18:54 WBC 14.0 H RBC MCV 98 H RDW 15.9 H Lymph % (Auto) 7.3 L [place] % (Auto) 9.0 H Lymph # 1.0 L [place] # 1.3 H Seg Neutrophils % 82.5 H Seg Neuts % (Manual) Lymphocytes % (Manual) Seg Neutrophils # 11.5 H Seg Neutrophils # Man Lymphocytes # (Manual) APTT 41.1 H POC ABG pH POC ABG pO2 BUN 29 H Creatinine Glucose 115 H CK-MB (CK-2) Rel Index Total Protein Albumin 05/26/19 05/27/19 05/28/19 22:26 05:48 04:14 WBC 11.7 H RBC 3.50 L MCV RDW 15.3 H Lymph % (Auto) [place] % (Auto) Lymph # [place] # Seg Neutrophils % Seg Neuts % (Manual) 93.0 H Lymphocytes % (Manual) 5.0 L Seg Neutrophils # Seg Neutrophils # Man 10.9 H Lymphocytes # (Manual) 0.6 L APTT POC ABG pH 7.456 H POC ABG pO2 BUN Creatinine Glucose CK-MB (CK-2) Rel Index 5.2 H Total Protein Albumin 05/28/19 05/31/19 05/31/19 04:14 04:47 04:47 WBC RBC 3.35 L MCV RDW Lymph % (Auto) [place] % (Auto) Lymph # [place] # Seg Neutrophils % Seg Neuts % (Manual) 94.0 H Lymphocytes % (Manual) 4.0 L Seg Neutrophils # Seg Neutrophils # Man 9.5 H Lymphocytes # (Manual) 0.4 L APTT POC ABG pH POC ABG pO2 BUN 34 H 27 H Creatinine 0.6 L 0.6 L Glucose 124 H 162 H CK-MB (CK-2) Rel Index Total Protein 5.6 L D Albumin 3.2 L 05/31/19 10:06 WBC RBC MCV RDW Lymph % (Auto) [place] % (Auto) Lymph # [place] # Seg Neutrophils % Seg Neuts % (Manual) Lymphocytes % (Manual) Seg Neutrophils # Seg Neutrophils # Man Lymphocytes # (Manual) APTT POC ABG pH 7.452 H POC ABG pO2 50 L BUN Creatinine Glucose CK-MB (CK-2) Rel Index Total Protein Albumin
--- NOTE | 2019-06-01 16:31 | Event Note ---
Date: 06/01/19 Patient discharged today. I have seen and examined her and discussed with her and daughter in room.
[2019-06-01 17:39] VITALS: BP 139/61
== END 2019-06-01 15:36 | disposition home health service (06) | DRG 871 ==
LOC: ED 18:21 → 3A 05-27 03:11 → OBSVTOIN 05-27 14:59
PROVIDERS: ADMIT Internal Medicine; ATTEND Internal Medicine
PROC: 4A033R1 Measurement of Arterial Saturation, Peripheral, Percutaneous Approach (ICD-10-PCS; principal; 2019-05-26)
DX: A41.9 Sepsis, unspecified organism (principal); I50.31 Acute diastolic (congestive) heart failure; J96.01 Acute respiratory failure with hypoxia; J18.9 Pneumonia, unspecified organism; J44.1 Chronic obstructive pulmonary disease with (acute) exacerbation; J44.0 Chronic obstructive pulmonary disease with (acute) lower respiratory infection; E66.01 Morbid (severe) obesity due to excess calories; F17.210 Nicotine dependence, cigarettes, uncomplicated; E27.8 Other specified disorders of adrenal gland; E78.00 Pure hypercholesterolemia, unspecified; I11.0 Hypertensive heart disease with heart failure; Z79.899 Other long term (current) drug therapy; Z68.37 Body mass index [BMI] 37.0-37.9, adult; Z71.6 Tobacco abuse counseling
CPT/HCPCS: 36415; 36600; 71046; 71275; 76536; 80048; 80053; 82550; 82553; 82803; 83880; 84439; 84443; 84484; 85007; 85025; 85610; 85730; 87040; 93005; 93010; 93306; 94640; 94644; 94760; 99406; G0378; A9270-GY; J0456; J0696; J1644; J1940; J2270; J2930; J7050; J7512; Q9967